=== PATIENT | female | born 1990 ===

== ENCOUNTER 2021-08-15 09:53 | Inpatient (IN) ==
[2021-08-15] MEDS ORDERED: OXYTOCIN/LR 20 UNIT/1,000 ML BAG IV ONE ×2 (10:20→15:14)
[2021-08-15] MEDS ORDERED: CITRIC ACID/SODIUM CITRATE 30 ML UDCUP PO ONE (10:20)
[2021-08-15] MEDS ORDERED: TRANEXAMIC ACID 1,000 MG in SODIUM CHLORIDE 0.9% 100 ML IV PRN (10:20)
[2021-08-15] MEDS ORDERED: CARBOPROST TROMETHAMINE 250 MCG/ML AMP IM PRN (10:20)
[2021-08-15] MEDS ORDERED: miSOPROStoL 200 MCG TABLET RECTAL PRN (10:20)
[2021-08-15] MEDS ORDERED: METHYLERGONOVINE 0.2 MG/1 ML AMP IM PRN (10:20)
[2021-08-15] MEDS ORDERED: LACTATED RINGERS 1,000 ML IV SCH ×3 (10:30→15:30)
[2021-08-15 10:51] LABS: Basophils % 0.3 % (0.0-0.8); Eosinophils % 0.5 % (0.00-10.9); Hematocrit 36.9 VOL% (35.7-47.0); Hemoglobin 12.8 GM/DL (12.0-16.0); Immature Granulocytes % 0.3 %; Immature Granulocytes Absolute 0.03 #; Lymphocytes # 1.7 10*3/uL (1.4-4.0); Lymphocytes % 19.1 % (21.3-54.2); Mean Corpuscular HGB Conc 34.7 GM/DL (32-36); Mean Corpuscular Volume 86.6 FL (87-102); Mean Platelet Volume 10.5 FL (9.6-12.0); Monocytes # 0.4 10*3/uL (0.11-0.8); Neutrophils % 74.8 % (38.7-73.9); Platelet Count 173 T/CUMM (130-400); Red Blood Count 4.26 MC/CUMM (3.8-5.5); White Blood Count 8.8 T/CUMM (4-12)
[2021-08-15 11:12] LABS: Alanine Aminotransferase 19 U/L (13-56); Albumin 2.6 G/DL (3.4-5.0); Alkaline Phosphatase 125 U/L (45-117); Aspartate Amino Transferase 16 U/L (0-37); Bilirubin,Total < 0.39 MG/DL (0.20-1.00); Blood Urea Nitrogen 10 MG/DL (7-18); Calcium 9.3 MG/DL (8.5-10.1); Carbon Dioxide 21 MMOL/L (21-32); Chloride 109 MMOL/L (98-107); Estimated Glom Filtration Rate 181 ML/MIN; Glucose 105 MG/DL (74-106); Osmolality,Calculated 273.7 MOS/KG (273-304); Potassium 4.1 MMOL/L (3.5-5.1); Sodium 138 MMOL/L (136-145); Total Protein 6.7 G/DL (6.4-8.2)
[2021-08-15] MEDS ORDERED: ONDANSETRON 4 MG/2 ML VIAL ONE (11:53)
[2021-08-15] MEDS ORDERED: PHENYLEPHRINE 1 MG/10 ML SYRINGE IV ONE (11:53)
[2021-08-15] MEDS ORDERED: ACETAMINOPHEN INJ 1,000 MG/100 ML VIAL IV ONE (11:53)
[2021-08-15] MEDS ORDERED: KETOROLAC 30 MG/1 ML VIAL ONE (11:53)
[2021-08-15] MEDS ORDERED: BUPIVACAINE MPF 0.5% 30 ML VIAL ONE (11:53)
[2021-08-15] MEDS ORDERED: buprenorphine HCL 0.3 MG/ML VIAL ONE (11:54)
[2021-08-15] MEDS ORDERED: FAMOTIDINE 20 MG/2 ML VIAL IV ONE (11:56)
[2021-08-15] MEDS ORDERED: OXYTOCIN/LR 30 UNIT/1,000 ML BAG IV ONE (13:00)
[2021-08-15] MEDS ORDERED: ceFAZolin 3,000 MG in SYRINGE 1 EACH IV ONE (13:00)
[2021-08-15] MEDS ORDERED: OXYTOCIN 10 UNIT/ML VIAL IM ONE (13:00)
[2021-08-15] MEDS ORDERED: GLYCOPYRROLATE 0.4 MG/2 ML VIAL ONE ×2 (14:36→14:55)
[2021-08-15 14:51] LABS: Bilirubin,Urine Negative (Negative); Blood, Urine Negative (Negative); Glucose,Urine (UA) Negative (Negative); Ketones,Urine 40 mg/dL (Negative); Mucus,Urine Few /LPF (Occasional); Nitrite,Urine Negative (Negative); Protein,Urine Negative (Negative); RBC,Urine 1 /HPF (0-4); Squamous Epithelial Cell,Urine Occasional /HPF (0-10); Urine Appearance Clear (Clear); Urine Color Yellow (Yellow); Urine Specific Gravity 1.025 (1.001-1.035); Urine Urobilinogen 0.2 eU/dL (<2.0)
[2021-08-15] MEDS ORDERED: FUROSEMIDE 20 MG/2 ML VIAL ONE ×2 (14:55)
[2021-08-15 14:57] LABS: Cord Venous Blood HCO3 22.8 MMOL/L; Cord Venous Blood PCO2 60.5 MMHG; Cord Venous Blood PO2 20.3
[2021-08-15] MEDS ORDERED: ONDANSETRON 4 MG/2 ML VIAL IV PRN (15:14)
[2021-08-15] MEDS ORDERED: RHO(D) IMMUNE GLOBULIN 300 MCG SYRINGE IM ONE (15:14)
[2021-08-15] MEDS ORDERED: ACETAMINOPHEN 325 MG TABLET PO PRN (15:14)
[2021-08-15] MEDS: KETOROLAC 30 MG/1 ML VIAL IV SCH (20:52)
[2021-08-15] MEDS: ACETAMINOPHEN 500 MG TABLET PO SCH (20:53)
[2021-08-15] MEDS: DOCUSATE SODIUM 100 MG CAPSULE PO SCH (20:57)
[2021-08-15 23:33] LABS: Basophils % 0.2 % (0.0-0.8); Eosinophils % 0.2 % (0.00-10.9); Hematocrit 32.7 VOL% (35.7-47.0); Hemoglobin 11.2 GM/DL (12.0-16.0); Immature Granulocytes % 0.3 %; Immature Granulocytes Absolute 0.03 #; Lymphocytes # 1.5 10*3/uL (1.4-4.0); Lymphocytes % 14.1 % (21.3-54.2); Mean Corpuscular HGB Conc 34.3 GM/DL (32-36); Mean Corpuscular Volume 87.4 FL (87-102); Mean Platelet Volume 10.6 FL (9.6-12.0); Monocytes # 0.7 10*3/uL (0.11-0.8); Monocytes % 6.2 % (1.7-12.7); Platelet Count 156 T/CUMM (130-400); Red Blood Count 3.74 MC/CUMM (3.8-5.5); Red Cell Distribution Width 14.1 % (9.3-17.3); White Blood Count 10.4 T/CUMM (4-12)
[2021-08-16 04:27] LABS: Basophils % 0.4 % (0.0-0.8); Eosinophils # 0.1 10*3/uL (0.0-0.87); Eosinophils % 0.7 % (0.00-10.9); Hematocrit 33.5 VOL% (35.7-47.0); Hemoglobin 11.6 GM/DL (12.0-16.0); Immature Granulocytes % 0.4 %; Immature Granulocytes Absolute 0.03 #; Lymphocytes # 1.3 10*3/uL (1.4-4.0); Lymphocytes % 15.7 % (21.3-54.2); Mean Corpuscular HGB Conc 34.6 GM/DL (32-36); Mean Corpuscular Volume 87.5 FL (87-102); Mean Platelet Volume 10.7 FL (9.6-12.0); Monocytes # 0.5 10*3/uL (0.11-0.8); Monocytes % 6.3 % (1.7-12.7); Neutrophils % 76.5 % (38.7-73.9); Platelet Count 150 T/CUMM (130-400); Red Blood Count 3.83 MC/CUMM (3.8-5.5); Red Cell Distribution Width 14.4 % (9.3-17.3); White Blood Count 8.2 T/CUMM (4-12)
[2021-08-16] MEDS: KETOROLAC 30 MG/1 ML VIAL IV SCH ×2 (05:05→11:22)
[2021-08-16] MEDS: ACETAMINOPHEN 500 MG TABLET PO SCH ×3 (05:05→18:53)
[2021-08-16] MEDS: MAGNESIUM HYDROXIDE SUSP 30 ML UDCUP PO PRN ×2 (09:55→21:26)
[2021-08-16] MEDS: DOCUSATE SODIUM 100 MG CAPSULE PO SCH ×2 (09:55→21:26)
[2021-08-16] MEDS: MULTIVITAMIN (PRENATAL) TABLET PO SCH (09:56)
[2021-08-16] MEDS: SIMETHICONE CHEW 80 MG TABLET PO PRN ×3 (09:56→21:38)
[2021-08-16] MEDS: METOCLOPRAMIDE 10 MG TABLET PO SCH ×2 (15:46→23:33)
[2021-08-16] MEDS: IBUPROFEN 800 MG TABLET PO PRN (21:38)
[2021-08-16] MEDS ORDERED: BISACODYL 10 MG SUPP RECTAL PRN (22:43)
[2021-08-17] MEDS: METOCLOPRAMIDE 10 MG TABLET PO SCH (07:14)
[2021-08-17 07:34] VITALS: BP 107/51
[2021-08-17] MEDS: MULTIVITAMIN (PRENATAL) TABLET PO SCH (08:53)
[2021-08-17] MEDS: SIMETHICONE CHEW 80 MG TABLET PO PRN (08:54)
[2021-08-17] MEDS: MAGNESIUM HYDROXIDE SUSP 30 ML UDCUP PO PRN (08:54)
[2021-08-17] MEDS: DOCUSATE SODIUM 100 MG CAPSULE PO SCH (08:54)
[2021-08-17] MEDS: IBUPROFEN 800 MG TABLET PO PRN (11:04)
== END 2021-08-17 11:30 | disposition home or self-care (01) | DRG 785 ==
LOC: N.LD 09:53 → N.OB 19:17
PROVIDERS: ADMIT Obstetrics & Gynecology; ATTEND Obstetrics & Gynecology